=== PATIENT | female | born 1990 | race Caucasian/White ===

== ENCOUNTER 2018-06-16 09:28 | Emergency (ER) | payer OTHER ==
[~2018-06-16] VITALS: Ht 152.4 cm; Wt 59.4 kg
[2018-06-16 09:54] VITALS: Ht 152.4 cm; Wt 59.4 kg
[2018-06-16 13:34] VITALS: BP 127/90
== END 2018-06-16 13:34 | disposition home or self-care (01) ==
LOC: ED 09:28
DX: R05 Cough (principal); T78.49XA Other allergy, initial encounter; R07.81 Pleurodynia; X58.XXXA Exposure to other specified factors, initial encounter

== ENCOUNTER 2018-10-07 10:03 | Emergency (ER) | payer OTHER ==
[~2018-10-07] VITALS: Ht 152.4 cm; Wt 57.6 kg
[2018-10-07 10:13] VITALS: BP 123/72; Ht 152.4 cm; Wt 57.6 kg
== END 2018-10-07 12:27 | disposition home or self-care (01) ==
LOC: ED 10:03
DX: S93.502A Unspecified sprain of left great toe, initial encounter (principal); W22.8XXA Striking against or struck by other objects, initial encounter; Y93.89 Activity, other specified; Y92.89 Other specified places as the place of occurrence of the external cause; Y99.8 Other external cause status